=== PATIENT | female | born 1965 | race Caucasian/White ===

== ENCOUNTER 2022-06-16 13:34 | Emergency (ER) | payer OTHER ==
[2022-06-16 13:55] VITALS: BP 138/83; PULSE 89; RESP 16; TEMP 98.3; BMI 39.6
[2022-06-16] MEDS ORDERED: ACETAMINOPHEN 500 MG TABLET (FP) PO ONE (14:49)
[2022-06-16] MEDS ORDERED: LORATADINE 10 MG TABLET PO ONE (14:50)
[2022-06-16] MEDS ORDERED: LORATADINE 10 MG TABLET ONE (14:58)
[2022-06-16] MEDS ORDERED: ACETAMINOPHEN 500 MG TABLET (FP) ONE (14:58)
[2022-06-16] MEDS ORDERED: NAPHAZOLINE 0.1% OPHTHALMIC SOLUTION 15 ML BOTTLE OD SCH (18:00)
== END 2022-06-16 15:47 | disposition home or self-care (01) ==
LOC: JERFT 13:34 → JER 13:34 → JERFT 15:47
DX: H10.13 Acute atopic conjunctivitis, bilateral (principal)
CPT/HCPCS: 99283-25

== ENCOUNTER 2022-12-31 08:35 | Emergency (ER) | payer OTHER ==
[2022-12-31 08:44] VITALS: BP 132/80; PULSE 85; RESP 18; TEMP 99; BMI 38.4
[2022-12-31 09:43] LABS: THROAT:GRP A STREP NOT DETECTED (NOTDETECTED)
== END 2022-12-31 11:58 | disposition home or self-care (01) ==
LOC: JER 08:35 → JERFT 08:35
DX: R51.9 Headache, unspecified (principal); J02.9 Acute pharyngitis, unspecified; R05.9 Cough, unspecified; R09.81 Nasal congestion; U07.1 COVID-19
CPT/HCPCS: 0241U-QW; 87651; 99283-25

== ENCOUNTER 2023-03-26 13:55 | Emergency (ER) | payer OTHER ==
[2023-03-26 14:00] VITALS: BP 124/73; RESP 18; TEMP 97.8; BMI 41.3
[2023-03-26] MEDS ORDERED: ALBUTEROL SO4 2.5/IPRATROPIUM 0.5 INH SOL 3 ML VIAL.NEB. NEB ONE ×2 (15:38→15:49)
[2023-03-26 16:00] LABS: BASO % 0.6 % (0-2.0); EOS % 0.8 % (0-4.5); HEMATOCRIT 36.5 % (32.4-45.2); HEMOGLOBIN 11.7 GM/dL (10.7-15.3); LYMPH % 17.3 % (8-40); MCH 22.1 pg (25.7-33.7); MCHC 32.1 g/dl (32.0-36.0); MEAN CELL VOLUME 68.7 fl (80-96); MEAN PLT VOLUME 8.9 fl (7.5-11.1); MONO % 8.2 % (3.8-10.2); NEUT % 73.1 % (42.8-82.8); PLATELET COUNT 353 10^3/uL (134-434); RBC 5.32 M/mm3 (3.60-5.2); RDW 16.1 % (11.6-15.6); WHITE BLOOD COUNT 12.7 K/mm3 (4.0-10.0)
[2023-03-26 16:25] LABS: POTASSIUM 4.1 mmol/L (3.5-5.1)
[2023-03-26 16:27] LABS: ALBUMIN 3.6 g/dl (3.4-5.0); BLOOD UREA NITROGEN 8.9 mg/dL (7-18); CALCIUM 9.4 mg/dL (8.5-10.1)
[2023-03-26 16:30] LABS: CREATININE 0.9 mg/dL (0.55-1.3)
[2023-03-26 16:32] LABS: BILIRUBIN,TOTAL 0.3 mg/dL (0.2-1); TOT PROT 7.8 g/dl (6.4-8.2)
[2023-03-26 18:25] VITALS: PULSE 86
== END 2023-03-26 18:35 | disposition home or self-care (01) ==
LOC: JERFT 13:55
PROC: 3E0F7GC Introduction of Other Therapeutic Substance into Respiratory Tract, Via Natural or Artificial Opening (ICD-10-PCS; principal; 2023-03-26)
DX: R05.3 Chronic cough (principal); R07.89 Other chest pain
CPT/HCPCS: 36415; 71046-TC-FY; 80053; 84484; 85025; 93005; 93010; 99285-25

== ENCOUNTER 2023-04-24 11:36 | Emergency (ER) | payer OTHER ==
[2023-04-24 11:49] VITALS: BP 134/82; PULSE 95; RESP 16; TEMP 98.4; BMI 41.3
== END 2023-04-24 13:11 | disposition home or self-care (01) ==
LOC: JERFT 11:36
DX: R05.3 Chronic cough (principal); R09.81 Nasal congestion; R51.9 Headache, unspecified; J34.89 Other specified disorders of nose and nasal sinuses; R09.82 Postnasal drip; Z20.822 Contact with and (suspected) exposure to COVID-19
CPT/HCPCS: 0241U-QW; 99283-25

== ENCOUNTER 2023-05-03 09:12 | Emergency (ER) | payer OTHER ==
[2023-05-03 09:22] VITALS: BP 126/87; PULSE 109; RESP 18; TEMP 98.6; BMI 41.3
== END 2023-05-03 16:45 | disposition home or self-care (01) ==
LOC: JERFT 09:12
DX: R05.9 Cough, unspecified (principal); K21.9 Gastro-esophageal reflux disease without esophagitis
CPT/HCPCS: 99282-25

== ENCOUNTER 2023-06-21 09:11 | Emergency (ER) | payer OTHER ==
[2023-06-21 09:34] VITALS: RESP 18; BMI 38.5
[2023-06-21 11:22] LABS: BASO % 0.6 % (0-2.0); EOS % 0.5 % (0-4.5); HEMATOCRIT 39.5 % (32.4-45.2); HEMOGLOBIN 12.6 GM/dL (10.7-15.3); LYMPH % 13.6 % (8-40); MCHC 31.8 g/dl (32.0-36.0); MEAN PLT VOLUME 10.3 fl (7.5-11.1); MONO % 6.7 % (3.8-10.2); NEUT % 78.6 % (42.8-82.8); PLATELET COUNT 313 10^3/uL (134-434); RBC 5.73 M/mm3 (3.60-5.2); RDW 16.8 % (11.6-15.6); WHITE BLOOD COUNT 10.8 K/mm3 (4.0-10.0)
[2023-06-21 11:29] LABS: INR 0.96 (0.83-1.09); PROTHROMBIN TIME (PATIENT) 10.9 SEC (9.7-13.0)
[2023-06-21 11:34] LABS: CHLORIDE 105 mmol/L (98-107); POTASSIUM 4.4 mmol/L (3.5-5.1); SODIUM 136 mmol/L (136-145)
[2023-06-21 11:36] LABS: CALCIUM 9.5 mg/dL (8.5-10.1)
[2023-06-21 11:37] LABS: ALBUMIN 3.2 g/dl (3.4-5.0); ANION GAP 3 mmol/L (4-13); BLOOD UREA NITROGEN 5.8 mg/dL (7-18); CO2 28 mmol/L (21-32); GLUCOSE,RANDOM 106 mg/dL (74-106)
[2023-06-21 11:40] LABS: SGOT/AST 23 U/L (15-37); SGPT/ALT 23 U/L (13-61)
[2023-06-21 11:41] LABS: BILIRUBIN,TOTAL 0.2 mg/dL (0.2-1); TOT PROT 7.1 g/dl (6.4-8.2)
[2023-06-21 11:42] LABS: ALK PHOS 74 U/L (45-117)
[2023-06-21 12:00] LABS: ANISOCYTOSIS 1+; MACROCYTOSIS 0
[2023-06-21 12:59] VITALS: BP 123/87; PULSE 78; TEMP 98.8
== END 2023-06-21 13:27 | disposition home or self-care (01) ==
LOC: JER 09:11
DX: R07.2 Precordial pain (principal)
CPT/HCPCS: 36415; 71045-TC-FY; 80053; 82550; 82553; 84484; 85025; 85610; 93005; 93010; 99285-25

== ENCOUNTER 2023-06-23 11:04 | Emergency (ER) | payer OTHER ==
[2023-06-23 11:30] VITALS: BP 141/93; PULSE 92; RESP 18; TEMP 98; BMI 38.5
[2023-06-23 12:04] LABS: HEMATOCRIT 38.1 % (32.4-45.2); HEMOGLOBIN 12.3 GM/dL (10.7-15.3); MCH 22.1 pg (25.7-33.7); MCHC 32.2 g/dl (32.0-36.0); MEAN CELL VOLUME 68.7 fl (80-96); MEAN PLT VOLUME 9.9 fl (7.5-11.1); PLATELET COUNT 291 10^3/uL (134-434); RBC 5.54 M/mm3 (3.60-5.2); RDW 16.4 % (11.6-15.6)
[2023-06-23 12:29] LABS: POTASSIUM 4.2 mmol/L (3.5-5.1)
[2023-06-23 12:31] LABS: ALBUMIN 3.3 g/dl (3.4-5.0); CALCIUM 9.2 mg/dL (8.5-10.1)
[2023-06-23 12:32] LABS: BLOOD UREA NITROGEN 4.9 mg/dL (7-18)
[2023-06-23 12:34] LABS: CREATININE 0.9 mg/dL (0.55-1.3)
[2023-06-23 12:37] LABS: BILIRUBIN,TOTAL 0.4 mg/dL (0.2-1); TOT PROT 7.2 g/dl (6.4-8.2)
[2023-06-23 12:39] LABS: ANISOCYTOSIS 3+; MACROCYTOSIS 0
[2023-06-23 13:29] LABS: URINE APPEARANCE CLEAR; URINE BILIRUBIN NEGATIVE (NEGATIVE); URINE COLOR YELLOW; URINE GLUCOSE (UA) NEGATIVE (NEGATIVE); URINE KETONE NEGATIVE (NEGATIVE); URINE LEUK ESTERASE NEGATIVE (NEGATIVE); URINE NITRITE NEGATIVE (NEGATIVE); URINE PROTEIN TRACE (NEGATIVE); URINE UROBILINOGEN 0.2 mg/dL (0.2-1.0)
[2023-06-23] MEDS ORDERED: FAMOTIDINE 20 MG TABLET ONE (14:02)
[2023-06-23] MEDS ORDERED: MAG HYDROX/AL HYDROX/SIMETH 30 ML UNIT-DOSE CUP ONE (14:02)
[2023-06-23] MEDS ORDERED: PANTOPRAZOLE 40 MG TABLET PO ONE (14:03)
[2023-06-23] MEDS: MAG HYDROX/AL HYDROX/SIMETH 30 ML UNIT-DOSE CUP PO ONE (14:06)
[2023-06-23] MEDS: FAMOTIDINE 20 MG TABLET PO ONE (14:06)
[2023-06-23] MEDS: PANTOPRAZOLE 40 MG TABLET PO ONE (14:06)
== END 2023-06-23 15:16 | disposition home or self-care (01) ==
LOC: JER 11:04
DX: R10.12 Left upper quadrant pain (principal); R10.11 Right upper quadrant pain
CPT/HCPCS: 36415; 80053; 81003; 83690; 85025; 87086; 99283-25

== ENCOUNTER 2023-06-26 16:26 | Emergency (ER) | payer OTHER ==
[2023-06-26 16:37] VITALS: RESP 20; BMI 38.7
[2023-06-26] MEDS ORDERED: LIDOCAINE VISCOUS 2% ORAL/TOP 15 ML UNIT-DOSE CUP ONE (18:10)
[2023-06-26] MEDS ORDERED: ACETAMINOPHEN INJECTION 100 ML IVPB ONE (18:10)
[2023-06-26 18:14] LABS: BASO % 0.9 % (0-2.0); EOS % 1.3 % (0-4.5); HEMATOCRIT 37.9 % (32.4-45.2); HEMOGLOBIN 11.7 GM/dL (10.7-15.3); LYMPH % 20.7 % (8-40); MCH 21.5 pg (25.7-33.7); MEAN CELL VOLUME 69.5 fl (80-96); MEAN PLT VOLUME 9.7 fl (7.5-11.1); MONO % 9.9 % (3.8-10.2); NEUT % 67.2 % (42.8-82.8); PLATELET COUNT 291 10^3/uL (134-434); RBC 5.45 M/mm3 (3.60-5.2); RDW 16.4 % (11.6-15.6); WHITE BLOOD COUNT 10.6 K/mm3 (4.0-10.0)
[2023-06-26] MEDS: ACETAMINOPHEN 1000 MG/100 ML BAG IVPB ONE (18:21)
[2023-06-26] MEDS: SODIUM CHLORIDE 0.9% 500 ML INFUS.BAG IV ONE (18:21)
[2023-06-26] MEDS: FAMOTIDINE 20 MG/50 ML IVPB 20 MG/50 ML MG IVPB ONE (18:22)
[2023-06-26] MEDS: LIDOCAINE VISCOUS 2% ORAL/TOP 15 ML UNIT-DOSE CUP MM ONE (18:22)
[2023-06-26 18:34] LABS: POTASSIUM 4.3 mmol/L (3.5-5.1)
[2023-06-26 18:36] LABS: CALCIUM 9.2 mg/dL (8.5-10.1)
[2023-06-26 18:37] LABS: ALBUMIN 3.3 g/dl (3.4-5.0); BLOOD UREA NITROGEN 7.5 mg/dL (7-18); MAGNESIUM 2.5 mg/dL (1.8-2.4)
[2023-06-26 18:41] LABS: BILIRUBIN,TOTAL 0.3 mg/dL (0.2-1); TOT PROT 7.2 g/dl (6.4-8.2)
[2023-06-26 18:58] LABS: ANISOCYTOSIS 1+; OVALOCYTE 1+
[2023-06-26 19:13] LABS: PLATELET ESTIMATE ADEQUATE
[2023-06-26 19:54] VITALS: BP 112/78; PULSE 77; TEMP 98.1
== END 2023-06-26 20:50 | disposition home or self-care (01) ==
LOC: JER 16:26
PROC: 3E033NZ Introduction of Analgesics, Hypnotics, Sedatives into Peripheral Vein, Percutaneous Approach (ICD-10-PCS; principal; 2023-06-26)
DX: R10.13 Epigastric pain (principal); R11.0 Nausea; R63.0 Anorexia
CPT/HCPCS: 36415; 76705-TC; 80053; 83605; 83690; 83735; 84484; 85025; 93005; 93010; 99285-25; J0131